=== PATIENT | female | born 1980 | race Caucasian/White ===

== ENCOUNTER 2019-09-15 16:38 | Emergency (ER) | payer MEDICAID ==
[~2019-09-15] VITALS: Ht 144.8 cm; Wt 66.7 kg
[2019-09-15 16:46] VITALS: Ht 144.8 cm; Wt 66.7 kg
[2019-09-15 17:22] LABS: BASOPHIL % 0.6 % (0-2); PLATELET COUNT 367 x10^3mcL (130-400); RED CELL DISTRIBUTION WIDTH 13.2 % (11.5-14.5)
[2019-09-15 18:25] VITALS: BP 126/79
== END 2019-09-15 18:25 | disposition home or self-care (01) ==
LOC: ED 16:38
DX: N93.9 Abnormal uterine and vaginal bleeding, unspecified (principal); Z88.0 Allergy status to penicillin
CPT/HCPCS: 36415